=== PATIENT | male | born 1995 | race Caucasian/White ===

== ENCOUNTER 2017-10-23 16:56 | Emergency (ER) | payer SELFPAY ==
[~2017-10-23] VITALS: Ht 180.3 cm; Wt 63.6 kg
[2017-10-23 16:59] VITALS: BP 137/101; TEMP 98.7
[2017-10-23] MEDS ORDERED: CLEOCIN HCL300 MG PO ×2 (17:23→17:26)
[2017-10-23] MEDS ORDERED: NORCO 325 MG-51 TAB PO ×2 (17:23→17:26)
[2017-10-23 17:38] VITALS: PULSE 91
== END 2017-10-23 17:40 | disposition home or self-care (01) ==
LOC: COL.ER 16:56
DX: K02.9 Dental caries, unspecified (principal); K04.7 Periapical abscess without sinus

== ENCOUNTER 2017-11-04 16:54 | Emergency (ER) | payer SELFPAY ==
[~2017-11-04] VITALS: Ht 180.3 cm; Wt 65.0 kg
[~2017-11-04 16:54] MED LIST: CLEOCIN HCL300 MG PO; NORCO 325 MG-51 TAB PO
[2017-11-04 17:00] VITALS: BP 131/75; TEMP 98.7
[2017-11-04] MEDS ORDERED: ULTRAM 50MG TAB50 MG PO (19:51)
[2017-11-04 20:14] VITALS: PULSE 78
== END 2017-11-04 20:15 | disposition home or self-care (01) ==
LOC: COL.ER 16:54
DX: K02.9 Dental caries, unspecified (principal); Z88.0 Allergy status to penicillin

== ENCOUNTER 2017-11-25 21:03 | Emergency (ER) | payer SELFPAY ==
[~2017-11-25] VITALS: Ht 180.3 cm; Wt 65.9 kg
[~2017-11-25 21:03] MED LIST changes: +ULTRAM 50MG TAB50 MG PO
[2017-11-25 21:07] VITALS: BP 128/76; TEMP 96.9
[2017-11-25] MEDS ORDERED: CLEOCIN HC150 MG/CAP PO (22:56)
[2017-11-25 23:00] VITALS: PULSE 94
== END 2017-11-25 23:05 | disposition home or self-care (01) ==
LOC: COL.ER 21:03
DX: K02.9 Dental caries, unspecified (principal); M27.2 Inflammatory conditions of jaws; F17.200 Nicotine dependence, unspecified, uncomplicated

== ENCOUNTER 2017-12-30 12:42 | Emergency (ER) | payer SELFPAY ==
[~2017-12-30] VITALS: Ht 180.3 cm; Wt 63.6 kg
[~2017-12-30 12:42] MED LIST changes: +CLEOCIN HC150 MG/CAP PO
[2017-12-30 12:45] VITALS: BP 146/78; TEMP 98.5
[2017-12-30 13:29] LABS: COLLECTION METHOD CLEAN CATCH
[2017-12-30 13:38] LABS: MUCOUS Present /lpf; PH 7 (5-8); SQUAMOUS EPITHELIAL None Seen /hpf; URINE APPEARANCE Clear; URINE BACTERIA None Seen /hpf; URINE BILIRUBIN Negative (NEGATIVE); URINE BLOOD Negative (NEGATIVE); URINE COLOR Straw; URINE GLUCOSE Negative (NEGATIVE); URINE KETONE Negative (NEGATIVE); URINE LEUKOCYTE ESTERASE Negative (NEGATIVE); URINE NITRATE Negative (NEGATIVE); URINE PROTEIN(semi-quant) Negative (NEGATIVE); URINE RBC 0-2 /hpf; URINE UROBILINOGEN Negative (NEGATIVE)
[2017-12-30] MEDS ORDERED: DOXYCYCLINE 10100 MG PO (15:04)
[2017-12-30 15:45] VITALS: PULSE 70
== END 2017-12-30 15:46 | disposition home or self-care (01) ==
LOC: COL.ER 12:42
PROVIDERS: Emergency Medicine
DX: N45.1 Epididymitis (principal); Z87.19 Personal history of other diseases of the digestive system
CPT/HCPCS: J0696; J1885

== ENCOUNTER 2018-01-22 22:49 | Emergency (ER) | payer SELFPAY ==
[~2018-01-22] VITALS: Ht 180.3 cm; Wt 61.4 kg
[~2018-01-22 22:49] MED LIST changes: +DOXYCYCLINE 10100 MG PO
[2018-01-22 23:36] VITALS: TEMP 97.5
[2018-01-22 23:55] VITALS: BP 118/75; PULSE 93
== END 2018-01-23 00:04 | disposition home or self-care (01) ==
LOC: COL.ER 22:49
DX: F10.129 Alcohol abuse with intoxication, unspecified (principal); F17.210 Nicotine dependence, cigarettes, uncomplicated

== ENCOUNTER 2018-05-12 02:07 | Emergency (ER) | payer SELFPAY ==
[~2018-05-12] VITALS: Ht 180.3 cm; Wt 65.9 kg
[2018-05-12 02:09] VITALS: TEMP 97.2
[2018-05-12 02:39] LABS: BASO % 0.4 % (0.0-2.0); EOS # 0.3 (0.0-0.7); EOS % 2.9 % (0-4.0); GRAN # 8.3 (1.4-6.5); GRAN % 79.7 % (42.2-75.2); HEMATOCRIT 43.3 % (42.0-52.0); HEMOGLOBIN 15.1 g/dl (13.5-18.0); LYMPH # 0.7 (1.2-3.4); LYMPH % 6.6 % (20.0-51.0); MEAN CELL VOLUME 86 fl (80.0-100.0); MEAN CORPUSCULAR HEMOGLOBIN 30 pg (27.0-31.0); MEAN CORPUSCULAR HGB CONC 35 g/dl (33.0-37.0); MEAN PLATELET VOLUME 10.2 fl (7.4-10.4); MONO # 1.1 (0.1-0.6); MONO % 10.1 % (1.7-9.3); PLATELET COUNT 201 K/mm3 (130-400); RED BLOOD COUNT 5.02 M/mm3 (4.20-5.60); REDCELL DISTRIBUTION WIDTH-CV 12.5 % (11.5-14.5)
[2018-05-12 02:48] LABS: ALBUMIN 4.1 gm/dL (3.5-5.0); BILIRUBIN,TOTAL 1.3 mg/dL (0.0-1.0); CALCIUM 8.7 mg/dL (8.4-10.2); CREATININE, serum 0.82 mg/dL (0.66-1.25); POTASSIUM 3.6 mmol/L (3.4-5.0)
[2018-05-12] MEDS ORDERED: PHENERGAN 25 TA25 MG PO (03:19)
[2018-05-12 03:43] LABS: COLLECTION METHOD CLEAN CATCH
[2018-05-12 03:50] LABS: MUCOUS Present /lpf; PH 7 (5-8); SQUAMOUS EPITHELIAL None Seen /hpf; URINE APPEARANCE Clear; URINE BACTERIA None Seen /hpf; URINE BILIRUBIN Negative (NEGATIVE); URINE BLOOD Negative (NEGATIVE); URINE COLOR Yellow; URINE GLUCOSE Negative (NEGATIVE); URINE KETONE 1+ (NEGATIVE); URINE LEUKOCYTE ESTERASE Negative (NEGATIVE); URINE NITRATE Negative (NEGATIVE); URINE PROTEIN(semi-quant) Negative (NEGATIVE); URINE RBC 0-2 /hpf; URINE UROBILINOGEN Negative (NEGATIVE)
[2018-05-12 04:06] VITALS: BP 109/66; PULSE 90
== END 2018-05-12 04:13 | disposition home or self-care (01) ==
LOC: COL.ER 02:07
PROVIDERS: Emergency Medicine
DX: R10.84 Generalized abdominal pain (principal); R19.7 Diarrhea, unspecified
CPT/HCPCS: J0780; J1170; J1885; J2405; J7030; Q9967